=== PATIENT | female | born 1960 | race Caucasian/White ===

== ENCOUNTER → 2021-08-22 10:08 | Outpatient (CLI) | payer OTHER, SELFPAY ==
--- NOTE | 2021-08-22 | DI.RAD.S_ITS ---
PROCEDURE: XR CHEST 2V INDICATIONS: RIGHT RIB PAIN TECHNIQUE: 2 views of the chest were acquired. COMPARISON: None. FINDINGS: Surgical changes and devices: None. Lungs and pleura: Lungs are clear. No pleural effusions or pneumothorax. Mediastinum: Mediastinal contours are normal. Heart size is normal. Bones and chest wall: No suspicious bony abnormalities. Soft tissues appear unremarkable. IMPRESSION: No acute cardiopulmonary disease. Dictated by: Robb Colindres RR Interpreted: Gautam Smith MD on 08/22/2021 at 10:31 Transcribed by: TYSON on 08/22/2021 at 10:36 Approved by: Gautam Smith M.D. on 08/22/2021 at 10:44
== END ==
PROVIDERS: PCP Family Medicine; Referring Provider Family Medicine; Visit Provider Family Medicine
DX: R07.81 Pleurodynia (principal); R07.89 Other chest pain
CPT/HCPCS: 71046

== ENCOUNTER 2022-02-22 14:28 | Emergency (ER) | payer OTHER, SELFPAY ==
[2022-02-22] VITALS (15 sets, daily range): BP systolic 120–167; BP diastolic 62–98; PULSE 52–69; RESP 16–32; TEMP 36.9; O2SAT 94–100; BMI 28.4
[2022-02-22 15:25] LABS: Add Manual Diff / Slide Review NO; Basophils Absolute Auto 100 /uL (0-100); Basophils Percent Auto 0.9 % (0-2); Eosinophils Absolute Auto 100 /uL (0-450); Eosinophils Percent Auto 2.6 % (2-4); Hematocrit 41.2 % (36-46); Hemoglobin 14.1 g/dL (12.0-16.0); Lymphocytes Absolute Auto 1800 /uL (1100-4500); Lymphocytes Percent Auto 32.4 % (25-40); Mean Corpuscular HGB Conc 34.3 % (30-36); Mean Corpuscular Hemoglobin 31.5 PG (26-34); Mean Corpuscular Volume 91.9 fL (80-100); Monocytes Absolute Auto 400 /uL (0-900); Monocytes Percent Auto 6.8 % (3-14); Neutrophils Absolute Auto 3300 /uL (1500-7000); Neutrophils Percent Auto 57.3 % (50-75); Platelet Count 297 X10^3/uL (150-400); Red Blood Cell Count 4.48 X10^6/uL (4.0-5.2); Red Cell Distribution Width 13.1 % (11.6-14.8); White Blood Cell Count 5.7 X10^3/uL (4.5-11.0)
[2022-02-22 15:42] LABS: Alanine Aminotransferase 23 IU/L (<35); Albumin 4.7 g/dL (3.5-5.0); Albumin Globulin Ratio 1.5 (1.0-2.8); Alkaline Phosphatase 56 U/L (38-126); Aspartate Aminotransferase 46 IU/L (14-36); BUN Creatinine Ratio 30.9 (6-22); Bilirubin Total 0.5 mg/dL (0.2-1.3); Blood Urea Nitrogen 30 mg/dL (7-17); Calcium 9.5 mg/dL (8.4-10.2); Carbon Dioxide 30 mmol/L (22-32); Chloride 103 mmol/L (98-107); Estimated Glomerular Filt Rate > 60 mL/min (>60); Globulin 3.1 g/dL (1.7-4.1); Glucose 101 mg/dL (80-110); HEMOLYSIS 30 (0-50); Lipase 271 U/L (23-300); Potassium 4.5 mmol/L (3.4-5.1); Sodium 137 mmol/L (137-145); Total Protein 7.8 g/dL (6.3-8.2)
[2022-02-22 15:43] LABS: Creatine Kinase 164 U/L (30-135)
[2022-02-22 15:54] LABS: Troponin I < 0.012 ng/mL (0.01-0.034)
[2022-02-22 15:58] LABS: CKMB % Relative Index 0.7 % (1.5-5.0); Creatine Kinase MB 1.19 ng/mL (<2.37)
--- NOTE | 2022-02-22 17:24 | ED_ITS ---
HPI - Chest Pain General Chief Complaint: Abdominal Pain Stated Complaint: Chest pain, left arm tingling-sent by Jeremy Time Seen by Provider: 02/22/22 16:39 Source: patient Mode of arrival: Ambulatory History of Present Illness HPI narrative: Did nothing patient is a 61-year-old female who has a history of hypertension hypothyroid presents today at the request of PCP for workup of chest discomfort. Patient states that she has had left hand numbness in the ulnar distribution off and on for the past couple of weeks but for the past few days it has been constant. She is recently retired and has been golfing quite a bit and she has had golfer's elbow in the right arm but nothing in the last. She states that she has also had some weird symptoms for the last 3-4 days she has had some left-sided chest discomfort. She says it is fairly constant but gets waves of intense pain that last for seconds. She denies any shortness of breath. She has noted she has had some epigastric issues she burps a lot after every time she eats she has some mild epigastric and upper quadrant pain on the significant today. The last few days he has also noticed some swelling in her left supraclavicular area. She says she denies any injury she is sure that has not been there previously. Related Data Allergies Allergy/AdvReac Type Severity Reaction Status Date / Time No Known Drug Allergies Allergy Verified 02/22/22 14:54 Review of Systems Review of Systems Narrative: GENERAL: Denies chills, fatigue, malaise, fever, sweats, travel HEENT: Denies sinus pain, ear pain, sore throat, difficulty swallowing, neck pain RESPIRATORY: Denies dyspnea, cough, wheezing, hemoptysis, sputum. CARDIOVASCULAR: See HPI GASTROINTESTINAL: See HPI : Denies dysuria, frequency, incontinence, hematuria, urinary retention, flank pain. MUSCULOSKELETAL: See HPI SKIN: No rash, no erythema, no pruritus NEUROLOGIC: Denies weakness, dizziness, headache, numbness, change in speech, confusion PSYCHIATRIC: No concerning psychosocial issues. 12 point review of systems is negative except for those stated above and HPI Patient History Medical History Acne (~2009) Cervical spine disease (~2010) Chicken pox Hypertension (~2019) Hypothyroidism (~2018) Scoliosis Vertigo (~2011) Surgical History Anesthesia Cervical vertebral fusion (~2010) History of removal of ovarian cyst (~1990) History of right breast biopsy (~1995) Family History Father Prostate cancer Coronary artery disease Hyperlipidemia Hypertension Mother Diabetes mellitus Brother Hyperlipidemia Hypertension Social History Smoking Status: Never smoker Smoking Status: Never smoker alcohol intake frequency: 0-2 drinks per day Substance Use Type: does not use Exam Initial Vital Signs Initial Vital Signs: Vital Signs Temperature 98.4 F 02/22/22 14:30 Pulse Rate 61 02/22/22 14:30 Respiratory Rate 20 02/22/22 14:30 Blood Pressure 167/98 H 02/22/22 14:30 Pulse Oximetry 100 02/22/22 14:30 GENERAL: Alert tearful 7-year-old femaleand in no acute distress. HEENT: Head atraumatic,EOMI, pupils reactive, face symmetric, moist mucous membranes . She does have some left supraclavicular swelling no mass appreciated CARDIOVASCULAR: Regular rate and rhythm without murmurs, rubs or gallops. RESPIRATORY: Breath sounds equal bilaterally, no wheezes rales or rhonchi. ABDOMEN: Soft, nontender. Normoactive bowel sounds all 4 quadrants. No guarding or rebound. EXTREMITIES: Normal range of motion, no clubbing or edema. Neurovascularly intact [facility] [employer] strength equal bilaterally good strong distal radial pulse on the left. No significant or obvious swelling. NEUROLOGICAL: Alert and oriented x4.Normal gait and speech. SKIN: Warm, dry, no laceration, no petechiae, no rashes or lesions. Scores NIH Stroke Scale Level of Conciousness: Alert, keenly responsive Ask month/age: Answers both questions correctly. Open/close eyes, close hand: Performs both tasks correctly Best gaze horizontal: Normal Visual plata: No visual loss Facial palsy: Normal symetrical movement Left arm drift: No drift for full 10 sec Right arm drift: No drift for full 10 sec Left leg drift: No drift for full 5 sec Right leg drift: No drift for full 5 sec Limb ataxia: Absent Sensory on face/arms/legs: Normal, no sensory loss Best language: No aphasia, normal Dysarthria: Normal Extinction or inattention: No abnormality Total NIH Stroke scale score: 0 Course Orders Ordered: ED Orders 02/22/22 15:00 Complete Blood Count AUTO DIFF Stat Comprehensive Metabolic Panel Stat Lipase Stat Troponin & CK Cardiac Panel Stat 02/22/22 17:30 Urine Culture Stat Urine Microscopic Stat 02/22/22 18:09 CT chest abd pel w con Stat Vital Signs Vital signs: Vital Signs - 8 hr 02/22/22 14:30 02/22/22 16:14 02/22/22 16:16 Temperature 98.4 F Pulse Rate 61 59 L 60 Respiratory Rate 20 Blood Pressure 167/98 H 130/87 Pulse Oximetry 100 100 100 02/22/22 16:30 02/22/22 16:31 Temperature Pulse Rate 61 59 L Respiratory Rate 32 H 23 Blood Pressure 120/62 Pulse Oximetry 99 100 MDM - Chest Pain Lab Data Result diagrams: 02/22/22 15:00 02/22/22 15:00 Labs: Lab Results 02/22/22 02/22/22 02/22/22 Range/Units 15:00 15:00 15:00 WBC 5.7 (4.5-11.0) X10^3/uL RBC 4.48 (4.0-5.2) X10^6/uL Hgb 14.1 (12.0-16.0) g/dL Hct 41.2 (36-46) % MCV 91.9 (80-100) fL MCH 31.5 (26-34) PG MCHC 34.3 (30-36) % RDW 13.1 (11.6-14.8) % Plt Count 297 (150-400) X10^3/uL Neut % (Auto) 57.3 (50-75) % Lymph % (Auto) 32.4 (25-40) % [place] % (Auto) 6.8 (3-14) % Eos % (Auto) 2.6 (2-4) % Baso % (Auto) 0.9 (0-2) % Neut # (Auto) 3300 (3976-0940) /uL Lymph # (Auto) 1800 (7889-4710) /uL [place] # (Auto) 400 (0-900) /uL Eos # (Auto) 100 (0-450) /uL Baso # (Auto) 100 (0-100) /uL Sodium 137 (137-145) mmol/L Potassium 4.5 (3.4-5.1) mmol/L Chloride 103 (98-107) mmol/L Carbon Dioxide 30 (22-32) mmol/L BUN 30 H (7-17) mg/dL Creatinine 0.97 (0.52-1.04) mg/dL Estimated GFR > 60 (>60) mL/min BUN/Creatinine Ratio 30.9 H (6-22) Glucose 101 (80-110) mg/dL Calcium 9.5 (8.4-10.2) mg/dL Total Bilirubin 0.5 (0.2-1.3) mg/dL AST 46 H (14-36) IU/L ALT 23 (<35) IU/L Alkaline Phosphatase 56 (38-126) U/L Total Creatine Kinase 164 H (30-135) U/L CK-MB (CK-2) 1.19 (<2.37) ng/mL CK-MB (CK-2) Rel Index 0.7 L (1.5-5.0) % Troponin I < 0.012 (0.01-0.034) ng/mL Total Protein 7.8 (6.3-8.2) g/dL Albumin 4.7 (3.5-5.0) g/dL Globulin 3.1 (1.7-4.1) g/dL Albumin/Globulin Ratio 1.5 (1.0-2.8) Lipase 271 (23-300) U/L Urine RBC (0-5/HPF) Urine WBC (0-5/HPF) Ur Squamous Epith Cells (0-5/HPF) Urine Bacteria (None) Urine Mucus (Negative) Ur Culture Indicated? 02/22/22 Range/Units 17:30 WBC (4.5-11.0) X10^3/uL RBC (4.0-5.2) X10^6/uL Hgb (12.0-16.0) g/dL Hct (36-46) % MCV (80-100) fL MCH (26-34) PG MCHC (30-36) % RDW (11.6-14.8) % Plt Count (150-400) X10^3/uL Neut % (Auto) (50-75) % Lymph % (Auto) (25-40) % [place] % (Auto) (3-14) % Eos % (Auto) (2-4) % Baso % (Auto) (0-2) % Neut # (Auto) (2438-9613) /uL Lymph # (Auto) (5013-4712) /uL [place] # (Auto) (0-900) /uL Eos # (Auto) (0-450) /uL Baso # (Auto) (0-100) /uL Sodium (137-145) mmol/L Potassium (3.4-5.1) mmol/L Chloride (98-107) mmol/L Carbon Dioxide (22-32) mmol/L BUN (7-17) mg/dL Creatinine (0.52-1.04) mg/dL Estimated GFR (>60) mL/min BUN/Creatinine Ratio (6-22) Glucose (80-110) mg/dL Calcium (8.4-10.2) mg/dL Total Bilirubin (0.2-1.3) mg/dL AST (14-36) IU/L ALT (<35) IU/L Alkaline Phosphatase (38-126) U/L Total Creatine Kinase (30-135) U/L CK-MB (CK-2) (<2.37) ng/mL CK-MB (CK-2) Rel Index (1.5-5.0) % Troponin I (0.01-0.034) ng/mL Total Protein (6.3-8.2) g/dL Albumin (3.5-5.0) g/dL Globulin (1.7-4.1) g/dL Albumin/Globulin Ratio (1.0-2.8) Lipase (23-300) U/L Urine RBC 0-1/hpf (0-5/HPF) Urine WBC 0-1/hpf (0-5/HPF) Ur Squamous Epith Cells 0-1 /hpf (0-5/HPF) Urine Bacteria Occasional (0-1) (None) Urine Mucus 1+ H (Negative) Ur Culture Indicated? Culture not indicate Urine Dip Bedside Urine Glucose Negative Bedside Urine Bilirubin - Negative Bedside Urine Ketone - Negative Urine Specific [place] 1.020 Bedside Urine Occult Blood +/- Bedside Urine pH 6.0 Bedside Urine Protein - Negative Bedside Urine Urobilinogen - Negative Bedside Urine Nitrite - Negative Bedside Urine Leukocytes - Negative Esterase Imaging Data CT scan - chest: Radiologist's Impression: [address] [place] [id number] Scan Report Signed Patient: Elizabeth Austin MR#: [id number] : 1960 Acct:[id number] Age/Sex: 61 / F Date of Service: 02/22/22 Loc: ED Accession Number: [id number] ?? Procedure: CT chest abd pel w con Ordering Provider: Zara Suárez D.O. PROCEDURE:? CT CHEST ABD PEL W CON ? INDICATIONS:? left supraclavicular swelling, ab pain, left chest pain ? TECHNIQUE:? After the administration of intravenous contrast, 5 mm thick sections acquired from the lung apices to the symphysis.? 5 mm coronal and sagittal reformats were performed, with additional 7 mm MIP reformats through the lungs.? For radiation dose reduction, the following was used:? automated exposure control, adjustment of mA and/or kV according to patient size.? ? COMPARISON:? None. ? FINDINGS:? Image quality:? Excellent.? ? CHEST:? Lungs and pleura:? No acute airspace opacities.? No pleural effusions or pneumothorax.? Central and peripheral airways appear patent and normal in caliber.? ? Mediastinum:? Heart size is normal.? No pericardial effusion.? At least moderate coronary artery calcifications.? No mediastinal or hilar adenopathy by size criteria.? Thoracic aorta and central pulmonary arteries are normal in size.? Esophagus is normal in caliber. ?No hiatal hernia.? ? Chest wall:? No axillary or supraclavicular adenopathy by size criteria.? Thyroid gland is unremarkable as visualized .? ? ? ABDOMEN:? Solid organs:? Liver is normal in size and enhancement.? Gallbladder is unremarkable .? Biliary system is non dilated.? Pancreas enhances normally.? Spleen is normal in size and enhancement.? No adrenal nodules.? Kidneys demonstrate normal size and e nhancement, without hydronephrosis.? ? Peritoneum and bowel:? Bowel loops demonstrate normal wall thickness and caliber.? No free fluid or air.? ? Nodes and vessels:? No retroperitoneal or mesenteric adenopathy by size criteria.? Aorta and inferior vena cava are normal in size.? ? Miscellaneous:? No ventral hernias.? ? ? PELVIS:? Genitourinary:? Bladder wall thickness is normal.? ? Miscellaneous:? Small fat containing left inguinal hernia.? No inguinal adenopathy. ? Bones:? No suspicious bony lesions.? No vertebral body compression fractures.? ? IMPRESSION:? ? 1. At least moderate coronary artery calcifications. ? 2. No evidence of acute process in the chest, abdomen, and pelvis. ? 3. Small fat containing left inguinal hernia.? ? ? Dictated by: Juan Morillo M.D. on 02/22/2022 at 18:42 ? ? Approved by: Juan Morillo M.D. on 02/22/2022 at 18:45 CT soft tissue neck: Radiologist's Impression: Elizabeth Austin MR#: [id number] : 1960 Acct:[id number] Age/Sex: 61 / F Date of Service: 02/22/22 Loc: ED Accession Number: [id number] ?? Procedure: CT soft tissue neck w con Ordering Provider: Zara Suárez D.O. PROCEDURE:? CT SOFT TISSUE NECK W CON ? INDICATIONS:? left supra clavicular swelling ? TECHNIQUE:? After the administration of intravenous contrast, 3.0 mm axial sections acquired from the sella to the aortic arch.? Additional oblique axial 3.0 mm sections acquired through the pharynx.? 3 mm thick coronal and sagittal reformats were generated.? For radiation dose reduction, the following was used:? automated exposure control.? ? COMPARISON:? [facility], CT, CT CHEST ABD PEL W CON, 02/22/2022, 18:19. ? FINDINGS:? Image quality:? Excellent.? ? Lymph nodes:? Question shotty left supraclavicular adenopathy versus prominent veins.? No other cervical adenopathy. ? Vessels:? Visualized vasculature appears patent.? ? Neck spaces:? The oropharynx, nasopharynx, and pharynx demonstrate no mucosal lesions.? The vocal cords, false vocal cords, pyriform sinuses, epiglottis, vallecula, and tongue base all appear normal.? Extramucosal spaces appear unremarkable.? ? Glands:? The parotid and submandibular glands appear normal.? Thyroid gland is unremarkable as visualized.? ? Miscellaneous:? Visualized brain and orbits appear normal.? Lung apices appear clear.? Superficial soft tissues appear normal. ? Bones:? No suspicious bony lesions.? Visualized sinuses and mastoids appear unremarkable. ? ? ? IMPRESSION:? ? 1. Question shotty left supraclavicular adenopathy versus prominent veins.? ? 2. Otherwise unremarkable neck CT with contrast. ? Comment:? Consider targeted ultrasound of the left supraclavicular region to evaluate possible left supraclavicular adenopathy. ? Dictated by: Juan Morillo M.D. on 02/22/2022 at 20:14 ? ? Approved by: Juan Morillo M.D. on 02/22/2022 at 20:17 ? ECG Data Interpretation: Normal sinus rhythm rate 58 NJ interval 184 QRS [address] changes MDM Narrative Medical decision making narrative: Pain has a variety of symptoms today. She does have some obvious left supraclav icular swelling it is not causing any arm swelling. No masses are seen on CT. She states she did get her COVID booster about 3 weeks ago and definitely had some axillary lymph nodes and pain but that seems to have resolved. Troponin is negative EKG negative. CT soft tissue neck and chest/ab/pelvis, fortunately do not show any masses. Soft tissue neck shows possible adenopathy or venous abnormality but no obvious of thrombosis. She has no significant swelling of her left arm to suggest that there is an upper extremity DVT. This may or may not be causing some of the numbness in her ulnar distribution. Patient is otherwise neurologically intact. I do not see need for CT head. NIH is 0 symptoms are not consistent with stroke. Discharge Plan Departure Patient Disposition: Home Clinical Impression: Atypical chest pain Instructions: DI for Atypical Chest Pain Activity Restrictions/Additional Instructions: *You have been diagnosed with atypical chest pain and left cervical swelling *What to do: Fortunately today we did not find anything acute. You do have some swelling in her left neck which may be related to veins were some lymph nodes. I recommend some ice and close monitoring. You may also need further cardiac workup such as stress test and/or echocardiogram. These things were not done in the emergency department. May try some antacid medicine to see if it helps your abdominal pain. *Continue to take medications as directed *Follow up with your primary care provider in 2-3 days or call [phone] *Return to ER if you should have increasing swelling in neck or arm, worse sitting numbness tingling weakness, chest pain shortness of breath palpitations dizziness or any new, worsening or concerning symptoms Referrals: Waldo Luna MD [Primary Care Provider] -
--- NOTE | 2022-02-22 18:09 | DI.CT.S_ITS ---
PROCEDURE: CT CHEST ABD PEL W CON INDICATIONS: left supraclavicular swelling, ab pain, left chest pain TECHNIQUE: After the administration of intravenous contrast, 5 mm thick sections acquired from the lung apices to the symphysis. 5 mm coronal and sagittal reformats were performed, with additional 7 mm MIP reformats through the lungs. For radiation dose reduction, the following was used: automated exposure control, adjustment of mA and/or kV according to patient size. COMPARISON: None. FINDINGS: Image quality: Excellent. CHEST: Lungs and pleura: No acute airspace opacities. No pleural effusions or pneumothorax. Central and peripheral airways appear patent and normal in caliber. Mediastinum: Heart size is normal. No pericardial effusion. At least moderate coronary artery calcifications. No mediastinal or hilar adenopathy by size criteria. Thoracic aorta and central pulmonary arteries are normal in size. Esophagus is normal in caliber. No hiatal hernia. Chest wall: No axillary or supraclavicular adenopathy by size criteria. Thyroid gland is unremarkable as visualized . ABDOMEN: Solid organs: Liver is normal in size and enhancement. Gallbladder is unremarkable . Biliary system is non dilated. Pancreas enhances normally. Spleen is normal in size and enhancement. No adrenal nodules. Kidneys demonstrate normal size and enhancement, without hydronephrosis. Peritoneum and bowel: Bowel loops demonstrate normal wall thickness and caliber. No free fluid or air. Nodes and vessels: No retroperitoneal or mesenteric adenopathy by size criteria. Aorta and inferior vena cava are normal in size. Miscellaneous: No ventral hernias. PELVIS: Genitourinary: Bladder wall thickness is normal. Miscellaneous: Small fat containing left inguinal hernia. No inguinal adenopathy. Bones: No suspicious bony lesions. No vertebral body compression fractures. IMPRESSION: 1. At least moderate coronary artery calcifications. 2. No evidence of acute process in the chest, abdomen, and pelvis. 3. Small fat containing left inguinal hernia. Dictated by: Juan Morillo M.D. on 02/22/2022 at 18:42 Approved by: Juan Morillo M.D. on 02/22/2022 at 18:45
[2022-02-22 19:05] LABS: RBC Urine 0-1/HPF (0-5/HPF); Squamous Epithelial Cell Urine 0-1 /HPF (0-5/HPF); WBC Urine 0-1/HPF (0-5/HPF)
[2022-02-22 19:06] LABS: Bacteria Urine Occasional (0-1); Mucus Urine 1+ (Negative)
--- NOTE | 2022-02-22 19:09 | DI.CT.S_ITS ---
PROCEDURE: CT SOFT TISSUE NECK W CON INDICATIONS: left supra clavicular swelling TECHNIQUE: After the administration of intravenous contrast, 3.0 mm axial sections acquired from the sella to the aortic arch. Additional oblique axial 3.0 mm sections acquired through the pharynx. 3 mm thick coronal and sagittal reformats were generated. For radiation dose reduction, the following was used: automated exposure control. COMPARISON: [facility], CT, CT CHEST ABD PEL W CON, 02/22/2022, 18:19. FINDINGS: Image quality: Excellent. Lymph nodes: Question shotty left supraclavicular adenopathy versus prominent veins. No other cervical adenopathy. Vessels: Visualized vasculature appears patent. Neck spaces: The oropharynx, nasopharynx, and pharynx demonstrate no mucosal lesions. The vocal cords, false vocal cords, pyriform sinuses, epiglottis, vallecula, and tongue base all appear normal. Extramucosal spaces appear unremarkable. Glands: The parotid and submandibular glands appear normal. Thyroid gland is unremarkable as visualized. Miscellaneous: Visualized brain and orbits appear normal. Lung apices appear clear. Superficial soft tissues appear normal. Bones: No suspicious bony lesions. Visualized sinuses and mastoids appear unremarkable. IMPRESSION: 1. Question shotty left supraclavicular adenopathy versus prominent veins. 2. Otherwise unremarkable neck CT with contrast. Comment: Consider targeted ultrasound of the left supraclavicular region to evaluate possible left supraclavicular adenopathy. Dictated by: Juan Morillo M.D. on 02/22/2022 at 20:14 Approved by: Juan Morillo M.D. on 02/22/2022 at 20:17
== END 2022-02-22 20:44 | disposition home or self-care (01) ==
PROVIDERS: Emergency Provider Emergency Medicine; PCP Family Medicine
DX: R07.89 Other chest pain (principal); R20.0 Anesthesia of skin; R10.13 Epigastric pain
CPT/HCPCS: 36415; 70491; 71260; 74177; 80053; 81003; 81015; 82550; 82553; 83690; 84484; 85025; 87077; 87086; 87186; 93005; 99284; Q9967